=== PATIENT | female | born 1960 | race American Indian/Alaskan Native ===

== ENCOUNTER 2017-08-10 23:14 | Emergency (ER) | payer MEDICARE ==
[2017-08-10 23:38] VITALS: BP 190/101
[2017-08-11 00:05] LABS: Hematocrit 29.8 % (30.3-42.9); Hemoglobin 9.7 gm/dl (10.1-14.3); Mean Corpuscular HGB Conc 32 % (30-34); Mean Corpuscular Hemoglobin 28 pg (28-32); Mean Corpuscular Volume 85 fl (79-97); Platelet Count 216 K/mm3 (140-440); Red Blood Count 3.51 M/mm3 (3.65-5.03); Red Cell Distribution Width 21.8 % (13.2-15.2); White Blood Count 6.7 K/mm3 (4.5-11.0)
[2017-08-11 00:24] LABS: Calcium 9.8 mg/dL (8.4-10.2); Chloride 95.6 mmol/L (98-107); Potassium 4.2 mmol/L (3.6-5.0)
--- NOTE | 2017-08-11 07:13 | XRay Report ---
Chest 2 views: Compared to 07/23/17. History: Shortness of breath. Findings: Marked cardiomegaly. Trachea is midline. Pulmonary venous congestion with lower lobe infiltrates bilaterally, more pronounced compared to previous study. Normal CP angles. Impression: Probable CHF. Less likely bilateral basilar pneumonia.
== END 2017-08-11 04:16 | disposition left against medical advice (07) ==
LOC: ED 23:14
DX: R06.02 Shortness of breath (principal); Z53.21 Procedure and treatment not carried out due to patient leaving prior to being seen by health care provider
CPT/HCPCS: 36415; 71020; 80048; 80061; 84484; 85027; 93005; 93010

== ENCOUNTER 2018-03-27 00:37 | Emergency (ER) | payer MEDICARE ==
--- NOTE | 2018-03-27 02:08 | XRay Report ---
FINAL REPORT EXAM: XR CHEST ROUTINE 2V HISTORY: Shortness of breath TECHNIQUE: PA and lateral views of the chest were submitted. Comparison is made to the previous study of 01/19/2016. FINDINGS: The heart is markedly enlarged. The lungs remain congested. There is thickening of the fissures. There is mild patchy airspace in the lung bases. Pleural effusions is not seen. The skeletal structures do not show any acute changes. IMPRESSION: Cardiomegaly with congestive heart failure pattern. Mild patchy airspace disease in both lung bases.
[2018-03-27 02:19] LABS: Basophils # (Auto) 0.1 K/mm3 (0.0-0.1); Basophils % (Auto) 0.7 % (0.0-1.8); Eosinophils # (Auto) 0.5 K/mm3 (0.0-0.4); Eosinophils % (Auto) 5.5 % (0.0-4.3); Hematocrit 29.2 % (30.3-42.9); Lymphocytes # (Auto) 1.9 K/mm3 (1.2-5.4); Lymphocytes % (Auto) 20.3 % (13.4-35.0); Mean Corpuscular HGB Conc 34 % (30-34); Mean Corpuscular Hemoglobin 29 pg (28-32); Mean Corpuscular Volume 86 fl (79-97); Monocytes # (Auto) 0.8 K/mm3 (0.0-0.8); Monocytes % (Auto) 9.2 % (0.0-7.3); Platelet Count 250 K/mm3 (140-440)
[2018-03-27 02:22] LABS: Red Cell Distribution Width 21.2 % (13.2-15.2)
[2018-03-27 02:49] LABS: Calcium 9.6 mg/dL (8.4-10.2)
[2018-03-27] MEDS ORDERED: NORCO 5/325 PO ONE (04:57)
--- NOTE | 2018-03-27 05:08 | Emergency Department Report ---
HPI - General Chief Complaint: Dyspnea/Respdistress Time Seen by Provider: 03/27/18 03:29 - HPI HPI: 57-year-old [place] female presents to the emergency department with complaint of trouble sleeping because of shortness of breath when she tries to lay flat. Patient has a history of end-stage renal disease on hemodialysis on Wednesday/ Wednesday/Wednesday and she has not missed any appointment. She also has a history of CHF, GERD, hypertension. Patient was driven in by her to be seen. She did not take anything for her symptoms prior to presentation. No recent travel or sick contacts at home. She denies any chest pain, fever, lower extremity swelling, cough. Her marble and granite polisher is Dr. She Holliday and her primary care physician is Dr. Philly Lafleur. ED Past Medical Hx - Past Medical History Previous Medical History?: Yes Hx Hypertension: Yes Hx Heart Attack/AMI: No Hx Congestive Heart Failure: Yes Hx Diabetes: No Hx Deep Vein Thrombosis: No Hx Pulmonary Embolism: No Hx GERD: Yes Hx Liver Disease: No Hx Renal Disease: Yes Hx Seizures: No Hx Asthma: No Hx COPD: No Hx Tuberculosis: No Hx Dementia: No Hx HIV: No - Surgical History Past Surgical History?: Yes Hx Coronary Stent: No Hx Pacemaker: No Hx Internal Defibrillator: No Additional Surgical History: LUE fistula - Social History Smoking Status: Never Smoker Substance Use Type: None - Medications Home Medications: Home Medications Medication Instructions Recorded Confirmed Last Taken Type Carvedilol [Coreg] 25 mg PO BID #60 tablet 08/22/16 07/23/17 1 Day Ago Rx ~07/22/17 NIFEdipine [Nifedipine ER] 60 mg PO BID 07/23/17 07/23/17 1 Day Ago History ~07/22/17 Doxazosin [Cardura] 4 mg PO QDAY #30 tablet 07/24/17 Unknown Rx Sevelamer Carbonate [Renvela] 2,400 mg PO AC 07/24/17 07/24/17 07/24/17 History 2400 Valsartan [Diovan] 160 mg PO BID #60 tablet 07/24/17 Unknown Rx HYDROcodone/APAP 5-325 [[place] 1 each PO Q8H PRN #6 tablet 03/27/18 Unknown Rx 5/325] ED Review of Systems ROS: Stated complaint: TERESE / SOB Other details as noted in HPI Comment: All other systems reviewed and negative Constitutional: denies: chills, fever Eyes: denies: eye pain, eye discharge, vision change ENT: denies: ear pain, throat pain Respiratory: orthopnea. denies: cough Cardiovascular: denies: chest pain, palpitations, edema Gastrointestinal: denies: abdominal pain, nausea, diarrhea Genitourinary: denies: urgency, dysuria, discharge Musculoskeletal: denies: back pain, joint swelling, arthralgia Skin: denies: rash, lesions Neurological: denies: headache, weakness, paresthesias Physical Exam - Physical Exam Vital Signs: Vital Signs 03/27/18 03/27/18 03/27/18 01:35 01:42 02:18 Temperature 98.4 F Pulse Rate 88 Respiratory Rate Blood Pressure 194/103 O2 Sat by Pulse 89 93 91 Oximetry 03/27/18 02:32 Temperature Pulse Rate Respiratory 20 Rate Blood Pressure O2 Sat by Pulse 95 Oximetry Physical Exam: GENERAL: The patient is well-developed well-nourished. HENT: Normocephalic. Atraumatic. Patient has moist mucous membranes. EYES: Extraocular motions are intact. Pupils equal reactive to light bilaterally. NECK: Supple. Trach is midline. CHEST/LUNGS: Coarse breath sounds but the chest. No tachypnea or accessory muscle use. There is no respiratory distress noted. HEART/CARDIOVASCULAR: Regular. There is no tachycardia. There is no murmur. ABDOMEN: Abdomen is soft, nontender. Patient has normal bowel sounds. There is no abdominal distention. SKIN: Skin is warm and dry. NEURO: The patient is awake, alert, and oriented. The patient is cooperative. The patient has no focal neurologic deficits. The patient has normal speech. MUSCULOSKELETAL: There is no tenderness or deformity. There is no limitation range of motion. There is no evidence of acute injury. ED Course Vital Signs 03/27/18 03/27/18 03/27/18 01:35 01:42 02:18 Temperature 98.4 F Pulse Rate 88 Respiratory Rate Blood Pressure 194/103 O2 Sat by Pulse 89 93 91 Oximetry 03/27/18 02:32 Temperature Pulse Rate Respiratory 20 Rate Blood Pressure O2 Sat by Pulse 95 Oximetry ED Medical Decision Making - Lab Data Result diagrams: 03/27/18 01:50 03/27/18 01:50 - EKG Data -: EKG Interpreted by Me EKG shows normal: sinus rhythm, axis, intervals, QRS complexes (LBBB, LVH), ST- T waves Rate: normal - EKG Data When compared to previous EKG there are: no significant change Interpretation: unchanged when compared t (08/10/17) - Radiology Data Radiology results: image reviewed interpreted by me: Chest x-ray shows some pulmonary vascular congestion. No pneumothorax. No obvious pneumonia. - Medical Decision Making Patient presented mostly because she was unable to get some sleep secondary to her orthopnea. Labs show some renal insufficiency with the patient has chronic kidney disease on hemodialysis. No hyperkalemia. Patient had some elevated blood pressure but came down to a more reasonable level without any intervention. Patient started saying that she was feeling improved, was tired, and just wanted to go home and go to sleep and was asking for discharge home. Chest x-ray does show some pulmonary vascular congestion but the patient does not appear to have any respiratory distress. Without any supplemental oxygen she kept her pulse ox in the mid 90s. Patient was discharged home to follow up with her primary care physician, marble and granite polisher, and continue with her normal dialysis regiment. However she understands to return to the emergency department with any worsening of her symptoms or any acute distress. - Differential Diagnosis CHF, pneumonia, asthma Critical Care Time: No Critical care attestation.: If time is entered above; I have spent that time in minutes in the direct care of this critically ill patient, excluding procedure time. ED Disposition Clinical Impression: ESRD (end stage renal disease) on dialysis, Orthopnea Hypertension Qualifiers: Hypertension type: essential hypertension Qualified Code(s): I10 - Essential ( primary) hypertension Disposition: TO HOME OR SELFCARE Is pt being admited?: No Condition: Stable Instructions: Chronic Kidney Disease (ED), Hypertension (ED) Additional Instructions: Please follow-up with your primary care physician and your marble and granite polisher. Make sure to go to your dialysis appointment on Wednesday. Return to the emergency department with any return of your shortness of breath or with any acute distress. You have been prescribed a medication that is sedating and therefore should not be taken prior to driving, working, and responsible for children and in no way should be mixed with alcohol of any quantity. Prescriptions: HYDROcodone/APAP 5-325 [[place] 5/325] 1 each PO Q8H PRN #6 tablet PRN Reason: Pain Referrals: PHILLY LAFLEUR MD [Primary Care Provider] - 2-3 Days JORI BRYAN MD [Staff Physician] - 2-3 Days Time of Disposition: 05:13
[2018-03-27 05:10] VITALS: BP 178/89
== END 2018-03-27 05:28 | disposition home or self-care (01) ==
LOC: ED 00:37
DX: E11.22 Type 2 diabetes mellitus with diabetic chronic kidney disease (principal); I13.2 Hypertensive heart and chronic kidney disease with heart failure and with stage 5 chronic kidney disease, or end stage renal disease; I50.9 Heart failure, unspecified; N18.6 End stage renal disease; K21.9 Gastro-esophageal reflux disease without esophagitis; Z99.2 Dependence on renal dialysis; Z88.6 Allergy status to analgesic agent; Z88.8 Allergy status to other drugs, medicaments and biological substances
CPT/HCPCS: 36415; 71046; 80048; 85025; 93005; 93010

== ENCOUNTER 2018-03-28 01:00 | Inpatient (IN) | payer MEDICARE ==
[2018-03-28] MEDS ORDERED: DUONEB *Not for PRN Use IH ONE (01:22)
--- NOTE | 2018-03-28 02:39 | XRay Report ---
FINAL REPORT EXAM: XR CHEST ROUTINE 2V HISTORY: Shortness of breath TECHNIQUE: PA and lateral views of the chest were submitted and compared to the study of 03/27/2018. FINDINGS: The heart is moderately enlarged. There is patchy airspace disease in both lower lobes with a small right-sided effusion. Mild congestion cannot be excluded. The skeletal structures do not show any acute changes. IMPRESSION: Cardiomegaly with stable airspace disease in both lung bases with small right-sided effusion. Mild congestion cannot be excluded.
[2018-03-28 02:40] LABS: Basophils # (Auto) 0.1 K/mm3 (0.0-0.1); Eosinophils # (Auto) 0.1 K/mm3 (0.0-0.4); Hematocrit 27.3 % (30.3-42.9); Hemoglobin 9.2 gm/dl (10.1-14.3); Lymphocytes # (Auto) 1.2 K/mm3 (1.2-5.4); Lymphocytes % (Auto) 12.6 % (13.4-35.0); Mean Corpuscular HGB Conc 34 % (30-34); Mean Corpuscular Hemoglobin 29 pg (28-32); Mean Corpuscular Volume 86 fl (79-97); Monocytes # (Auto) 0.6 K/mm3 (0.0-0.8); Monocytes % (Auto) 6.4 % (0.0-7.3); Platelet Count 235 K/mm3 (140-440); Red Blood Count 3.17 M/mm3 (3.65-5.03)
[2018-03-28 02:41] LABS: Red Cell Distribution Width 22.1 % (13.2-15.2)
[2018-03-28 03:13] LABS: Calcium 9.8 mg/dL (8.4-10.2)
[2018-03-28] MEDS ORDERED: LASIX IV ONE (05:04)
[2018-03-28] MEDS ORDERED: APRESOLINE IV ONE (05:04)
[2018-03-28] MEDS ORDERED: BABY ASPIRIN PO ONE (05:31)
--- NOTE | 2018-03-28 05:31 | Emergency Department Report ---
HPI - General Chief Complaint: Dyspnea/Respdistress Time Seen by Provider: 03/28/18 05:08 - HPI HPI: The patient is a 57-year-old female with a history of end-stage renal disease, presents for evaluation of dyspnea. The patient reports constant dyspnea for the past one day, severe, exacerbated with exertion or lying flat, improved with sitting up. The patient has fever, trauma to the chest, chest pain, hemoptysis, unilateral leg swelling, recent immobilization. ED Past Medical Hx - Past Medical History Previous Medical History?: Yes Hx Hypertension: Yes Hx Heart Attack/AMI: No Hx Congestive Heart Failure: Yes Hx Diabetes: No Hx Deep Vein Thrombosis: No Hx Pulmonary Embolism: No Hx GERD: Yes Hx Liver Disease: No Hx Renal Disease: Yes (M, W, F Dr. 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 - Surgical History Hx Coronary Stent: No Hx Pacemaker: No Hx Internal Defibrillator: No Additional Surgical History: LUE fistula - Social History Smoking Status: Never Smoker - Medications Home Medications: Home Medications Medication Instructions Recorded Confirmed Last Taken Type Carvedilol [Coreg] 25 mg PO BID #60 tablet 08/22/16 03/28/18 1 Day Ago Rx ~07/22/17 NIFEdipine [Nifedipine ER] 60 mg PO BID 07/23/17 03/28/18 1 Day Ago History ~07/22/17 Doxazosin [Cardura] 4 mg PO QDAY #30 tablet 07/24/17 03/28/18 Unknown Rx Sevelamer Carbonate [Renvela] 2,400 mg PO AC 07/24/17 03/28/18 07/24/17 History 2400 hydrALAZINE [Apresoline TAB] 100 mg PO BID 03/28/18 03/28/18 Unknown History ED Review of Systems ROS: Stated complaint: TERESE Other details as noted in HPI Constitutional: denies: fever ENT: denies: throat or neck pain Respiratory: denies: cough reports shortness of breath Cardiovascular: denies: chest pain Endocrine: denies unexplained weight loss or gain Gastrointestinal: denies: abdominal pain, nausea Genitourinary: denies: dysuria Musculoskeletal: denies: leg swelling Skin: denies: rash Neurological: denies: headache Hematological/Lymphatic: denies: easy bleeding or easy bruising Psych: denies sadness or hopelessness Physical Exam - Physical Exam Vital Signs: Vital Signs 03/28/18 03/28/18 03/28/18 01:15 02:09 02:38 Temperature 98.0 F 98.0 F Pulse Rate 85 85 Respiratory 18 18 Rate Blood Pressure 213/105 213/105 205/106 O2 Sat by Pulse 94 96 Oximetry 03/28/18 03/28/18 03/28/18 02:46 02:59 03:00 Temperature Pulse Rate 88 90 Respiratory 22 28 H Rate Blood Pressure 205/106 205/106 O2 Sat by Pulse 82 L 89 98 Oximetry 03/28/18 03/28/18 03/28/18 03:15 03:30 03:45 Temperature Pulse Rate 85 88 93 H Respiratory 20 21 31 H Rate Blood Pressure 207/105 211/106 205/112 O2 Sat by Pulse 96 95 94 Oximetry 03/28/18 03/28/18 03/28/18 04:00 04:15 04:30 Temperature Pulse Rate 87 84 88 Respiratory 22 19 26 H Rate Blood Pressure 210/107 197/102 192/104 O2 Sat by Pulse 95 96 98 Oximetry Physical Exam: General: well-nourished, well-developed, no acute distress Head: Normocephalic, atraumatic Eyes: normal sclera ENT: Mucous membranes are pink and moist Neck: trachea midline, neck supple, No neck stiffness, no cervical adenopathy Respiratory: Breath sounds equal bilaterally, no wheezing, rales, or rhonchi Cardio: S1 and S2 present, no murmurs, rubs, gallops, capillary refill is brisk Abdomen: Normoactive bowel sounds, soft abdomen, no rigidity, no guarding or rebound tenderness Chest WALL/Back: No tenderness to palpation of the chest wall, no CVA tenderness with percussion Musc: No pitting edema Skin: No rash Neuro: no facial drooping, normal speech Psych: Normal affect ED Course Vital Signs 03/28/18 03/28/18 03/28/18 01:15 02:09 02:38 Temperature 98.0 F 98.0 F Pulse Rate 85 85 Respiratory 18 18 Rate Blood Pressure 213/105 213/105 205/106 O2 Sat by Pulse 94 96 Oximetry 03/28/18 03/28/18 03/28/18 02:46 02:59 03:00 Temperature Pulse Rate 88 90 Respiratory 22 28 H Rate Blood Pressure 205/106 205/106 O2 Sat by Pulse 82 L 89 98 Oximetry 03/28/18 03/28/18 03/28/18 03:15 03:30 03:45 Temperature Pulse Rate 85 88 93 H Respiratory 20 21 31 H Rate Blood Pressure 207/105 211/106 205/112 O2 Sat by Pulse 96 95 94 Oximetry 03/28/18 03/28/18 03/28/18 04:00 04:15 04:30 Temperature Pulse Rate 87 84 88 Respiratory 22 19 26 H Rate Blood Pressure 210/107 197/102 192/104 O2 Sat by Pulse 95 96 98 Oximetry ED Medical Decision Making - Lab Data Result diagrams: 03/28/18 02:22 03/28/18 02:22 - Medical Decision Making The patient was seen and examined by myself. The patient is placed on a immigration consultant and continuous pulse ox. On initial evaluation, the patient was found to be in no distress. Evaluation orders were placed. The patient was given a breathing treatment and placed on supplemental oxygen. The patient was given antihypertensive. Lab results reveal elevated BUN of 42, elevated creatinine of 9, and severely elevated BNP of 70,000, consistent with congestive heart failure. Chest x-ray exhibits cardiomegaly and bibasilar pulmonary congestion, also consistent with fluid overload and congestive heart failure. The patient was given IV Lasix for treatment of his heart failure. Dr. Power, the driller machine on-call for the patient's driller machine was contacted. He agreed to arrange dialysis. Dr. Busch the physician on-call for the hospitalist service was contacted. She agreed to admit the patient. The admit order was placed. The patient was admitted in guarded condition. Critical care attestation.: If time is entered above; I have spent that time in minutes in the direct care of this critically ill patient, excluding procedure time. ED Disposition Clinical Impression: End-stage renal disease needing dialysis, Hypertensive emergency Dyspnea Qualifiers: Dyspnea type: dyspnea on exertion Qualified Code(s): R06.09 - Other forms of dyspnea CHF (congestive heart failure) Qualifiers: Heart failure type: systolic Heart failure chronicity: unspecified Qualified Code(s): I50.20 - Unspecified systolic (congestive) heart failure Disposition: DC-09 OP ADMIT IP TO THIS HOSP Is pt being admited?: Yes Does the pt Need Aspirin: Yes Condition: Serious Instructions: Hypertension (ED) Referrals: PHILLY LAFLEUR MD [Primary Care Provider] - 3-5 Days Time of Disposition: 05:28
[2018-03-28] MEDS ORDERED: NACL 0.9% 100 ML IV PRN (06:15)
[2018-03-28] MEDS ORDERED: ZOFRAN IV PRN (06:41)
[2018-03-28] MEDS ORDERED: SODIUM CHLORIDE FLUSH SYRINGE 10 ML IV PRN (06:41)
--- NOTE | 2018-03-28 06:41 | History and Physical Report ---
History of Present Illness Date of examination: 03/28/18 History of present illness: 57-year-old woman with a history of hypertension, end-stage renal disease, heart failure, GERRD comes emergency room with complaints of shortness of breath that started Wednesday night. She was seen in the Er and also complained of back pain, she was later discharged. She states that the pain medicine she recieved in the ER made nauseous and she had episodes of vomiting. Complained of PND, orthropnea, no chest pain. She had abdominal discomfort earlier in the ER but this is now resolved Review of systems Constitutional: no weight loss, chills Ears, eyes, nose, mouth and throat: no nasal congestion, no nasal discharge, no sinus pressure, no vision change, no red eye. Neck: No neck pain or rigidity. Cardiovascular: no chest pain, palpitations Respiratory: No cough Gastrointestinal: no abdominal pain, hematochezia Genitourinary : no dysuria, frequency , no hematuria Musculoskeletal: no joint swelling or muscle ache Integumentary: no rash, no pruritis Neurological: no parathesias, no numbness, no focal weakness Endocrine: no cold or heat intolerance, no polyuria or polydipsia Hematologic/Lymphatic: no easy bruising, no easy bleeding, no gland swelling Allergic/Immunologic: no urticaria, no angioedema. PAST MEDICAL HISTORY: hypertension, end-stage renal disease, heart failure, GERRD PAST SURGICAL HISTORY: AV fistula SOCIAL HISTORY: Denies alcohol, tobacco, drugs FAMILY HISTORY: Hypertension Medications and Allergies Allergies Allergy/AdvReac Type Severity Reaction Status Date / Time acetaminophen [From [place]] AdvReac Vomiting Verified 03/28/18 02:05 clonidine AdvReac Unknown Verified 07/23/17 08:06 hydrocodone [From [place]] AdvReac Vomiting Verified 03/28/18 02:05 lisinopril AdvReac Unknown Verified 07/23/17 08:06 Home Medications Medication Instructions Recorded Confirmed Last Taken Type NIFEdipine [Nifedipine ER] 60 mg PO BID 07/23/17 03/28/18 1 Day Ago History ~07/22/17 Sevelamer Carbonate [Renvela] 2,400 mg PO AC 07/24/17 03/28/18 07/24/17 History 2400 Aspirin [Aspirin BABY CHEW TAB] 81 mg PO QDAY #30 tab.chew 06/12/18 Unknown Rx Carvedilol [Coreg] 25 mg PO BID #60 tablet 03/29/18 Unknown Rx Doxazosin [Cardura] 4 mg PO QDAY #30 tablet 03/29/18 Unknown Rx Losartan [Cozaar] 100 mg PO QDAY #30 tablet 03/29/18 Unknown Rx Pravastatin Sodium [Pravastatin] 20 mg PO QHS #30 tablet 03/29/18 Unknown Rx hydrALAZINE [Apresoline TAB] 100 mg PO TID #30 tab 03/29/18 Unknown Rx Active Meds: Active Medications Sodium Chloride (Nacl 0.9%) 100 mls @ 999 mls/hr IV JIM PRN PRN Reason: Hypotension Exam - Physical Exam Narrative exam: Gen. appearance: Patient lying in bed, no apparent distress HEENT: Normocephalic, atraumatic, pupils equally round and reactive to light, extraocular movement intact, and no sclericterus,. No JVD or thyromegaly or nodule,neck supple, no carotid bruit ,mucous membranes moist, no exudate or erythema Heart: S1, S2, regular rate and rhythm Lungs: Crackles bilaterally, breathing comfortable Abdomen: Positive bowel sounds, nontender, nondistended, no organomegaly Extremity: No edema, cyanosis, clubbing Skin: No rash, nodules, warm, dry Neuro: Oriented 3, cranial nerves II-12 intact, speech is fluent, motor and sensory intact - Constitutional Vitals: Temp Pulse Resp BP Pulse Ox 98.0 F 88 28 H 196/104 89 03/28/18 02:09 03/28/18 06:00 03/28/18 06:00 03/28/18 06:00 03/28/18 06:00 Results - Labs CBC & Chem 7: 03/29/18 07:45 03/29/18 07:45 Labs: Abnormal lab results 03/28/18 03/28/18 03/28/18 Range/Units 02:22 02:22 02:25 RBC 3.17 L (3.65-5.03) M/mm3 Hgb 9.2 L (10.1-14.3) gm/dl Hct 27.3 L (30.3-42.9) % RDW 22.1 H (13.2-15.2) % Lymph % (Auto) 12.6 L (13.4-35.0) % Seg Neutrophils % 79.0 H (40.0-70.0) % Chloride 95.8 L (98-107) mmol/L BUN 42 H (7-17) mg/dL Creatinine 9.7 H (0.7-1.2) mg/dL Glucose 112 H (65-100) mg/dL NT-Pro-B Natriuret Pep 31198 H (0-900) pg/mL - Imaging and Cardiology EKG: image reviewed Chest x-ray: image reviewed Assessment and Plan Assessment Pulmonary Edema ESRD needing dialysis Hypertension uncontrolled GERD Plan Admit to medicine Consult renal for dialysis Check cardiac enzymes, DVT prophalaxis IV hydralazine for blood pressure control
[2018-03-28] MEDS ORDERED: SEVELAMER CARBONATE 2400 MG PO SCH (07:30)
[2018-03-28] MEDS ORDERED: COREG PO SCH (08:00)
--- NOTE | 2018-03-28 10:29 | Consultation ---
History of Present Illness - Reason for Consult Consult date: 03/28/18 end stage renal disease, accelerated hypertension Requesting physician: EDUARDO ROBISON - History of Present Illness 57-year-old lady who is well-known to me with a history of hypertension, End stage renal disease on hemodialysis on a Wednesday, Wednesday and Wednesday schedule. Patient dialyzes at [facility] dialysis clinic on [facility]. She went for her usual dialysis on Wednesday and everything went well. She states when she was leaving she was down to her dry weight and her blood pressure was 140/80 mmHg. She started having problems on Wednesday night. She felt short of breath and is with worsening exertional lying flat. She went to the emergency room and was given hydrocodone for back pain. She was not coughing but she did complain of tightness in her chest which was constant on Wednesday but has resolved now. She admits to associated palpitations but no dizziness or nausea and sweating. Patient was seen in emergency room on Wednesday discharged home and then presented back yesterday. Blood pressure by this time was quite high and she is being admitted for further management. She recently had reevaluation for her kidney transplant less than a year ago and tests including heart evaluation were normal per Patient. She is active on the transplant list. Past History Past Medical History: hypertension, hyperlipidemia Medications and Allergies Allergies Allergy/AdvReac Type Severity Reaction Status Date / Time acetaminophen [From [place]] AdvReac Vomiting Verified 03/28/18 02:05 clonidine AdvReac Unknown Verified 07/23/17 08:06 hydrocodone [From [place]] AdvReac Vomiting Verified 03/28/18 02:05 lisinopril AdvReac Unknown Verified 07/23/17 08:06 Home Medications Medication Instructions Recorded Confirmed Last Taken Type Carvedilol [Coreg] 25 mg PO BID #60 tablet 08/22/16 03/28/18 1 Day Ago Rx ~07/22/17 NIFEdipine [Nifedipine ER] 60 mg PO BID 07/23/17 03/28/18 1 Day Ago History ~07/22/17 Doxazosin [Cardura] 4 mg PO QDAY #30 tablet 07/24/17 03/28/18 Unknown Rx Sevelamer Carbonate [Renvela] 2,400 mg PO AC 07/24/17 03/28/18 07/24/17 History 2400 hydrALAZINE [Apresoline TAB] 100 mg PO BID 03/28/18 03/28/18 Unknown History Active Meds: Active Medications Carvedilol (Coreg) 25 mg PO BID NAHUN Doxazosin Mesylate (Cardura) 4 mg PO QDAY NAHUN Enoxaparin Sodium (Lovenox) 30 mg SUB-Q QDAY NAHUN Hydralazine HCl (Apresoline) 5 mg IV Q6HR PRN PRN Reason: Hypertension Hydralazine HCl (Apresoline) 100 mg PO BID [facility] Sodium Chloride (Nacl 0.9%) 100 mls @ 999 mls/hr IV JIM PRN PRN Reason: Hypotension Morphine Sulfate (Morphine) 2 mg IV Q4H PRN PRN Reason: Pain, Moderate (4-6) Nifedipine (Procardia Xl) 60 mg PO BID NAHUN Ondansetron HCl (Zofran) 4 mg IV Q8H PRN PRN Reason: Nausea And Vomiting Sevelamer Carbonate (Renvela) 2,400 mg PO AC NAHUN Sodium Chloride (Sodium Chloride Flush Syringe 10 Ml) 10 ml IV BID NAHUN Sodium Chloride (Sodium Chloride Flush Syringe 10 Ml) 10 ml IV PRN PRN PRN Reason: LINE FLUSH Review of Systems All systems: negative (Constitutional: no fever or chills. No anorexia or weight loss. HEENT: No sore throat or sinus drainage no hearing or vision impairment . Cardiovascular: See history of present illness Respiratory: See history of present illness Gastrointestinal: She had nausea or vomiting after taking hydrocodone. She also had constipation for which she took a laxative. No diarrhea no hematemesis, melena or hematochezia. Genitourinary: No frequency urgency dysuria or hematuria. She makes very little urine. Hematologic: No abnormal bleeding or bruising. Integumentary: no pruritus or rash. Neurological: No headache no focal weakness or numbness, no syncope or seizures. Musculoskeletal: No joint pains no stiffness. Psychiatry: no anxiety or depression) Exam - Vital Signs Vital signs: Vital Signs Temp Pulse Resp BP Pulse Ox 98.0 F 85 18 213/105 94 03/28/18 01:15 03/28/18 01:15 03/28/18 01:15 03/28/18 01:15 03/28/18 01:15 - Physical Exam Narrative exam: Young -[place] female lying in bed in no acute distress HEENT: NCAT, pink oral mucous membrane Neck: Supple, no venous distention CVS: S1S2 RRR with no murmur, rub or gallop Chest: Few rales lower zones bilaterally, Abdomen: Protuberant, soft, nontender, no organomegaly, bowel sounds are present Extremities: No edema, no clubbing Skin warm and dry, no rash Neuro: Awake, alert no focal deficits Results - Lab Results 03/28/18 02:22 03/28/18 02:22 Most recent lab results Calcium 9.8 mg/dL (8.4-10.2) 03/28/18 02:22 Assessment and Plan - Patient Problems (1) End-stage renal disease needing dialysis Current Visit: Yes Status: Acute Plan to address problem: Dialysis today is ongoing. Attempt 3-4 L fluid removal and reevaluate in the morning. (2) Hypertensive emergency Current Visit: Yes Status: Acute Plan to address problem: Blood pressure has improved. Follow blood pressure after fluid removal on dialysis. Adjust medications if still high. (3) Acute on chronic diastolic (congestive) heart failure Current Visit: No Status: Acute Plan to address problem: Follow-up following fluid removal on dialysis. Continue kallie and diuretic. (4) Anemia in ESRD (end-stage renal disease) Current Visit: No Status: Chronic Plan to address problem: Erythropoetin on dialysis.
--- NOTE | 2018-03-28 10:49 | Event Note ---
Date: 03/28/18 Patient with ESRD on dialysis presents with shortness of breath. I have seen and examined her. She states, that she did not miss dialysis. Urgent dialysis today.
[2018-03-28] MEDS: APRESOLINE IV PRN (12:30)
[2018-03-28] MEDS ORDERED: NACL 0.9 (PRIMING MACHINE ONLY DIALYSIS) MC ONE (12:46)
[2018-03-28] MEDS: LOVENOX SUB-Q SCH (14:39)
[2018-03-28] MEDS: CARDURA PO SCH (14:46)
[2018-03-28] MEDS: COREG PO SCH ×2 (14:46→21:01)
[2018-03-28] MEDS: RENVELA PO SCH ×3 (14:47→18:07)
[2018-03-28] MEDS: APRESOLINE PO SCH ×2 (14:47→21:01)
[2018-03-28] MEDS: PROCARDIA XL PO SCH ×2 (14:47→21:01)
[2018-03-28] MEDS: SODIUM CHLORIDE FLUSH SYRINGE 10 ML IV SCH ×2 (14:48→21:02)
[2018-03-28] MEDS: MORPHINE IV PRN ×2 (15:16→21:31)
[2018-03-29] MEDS: APRESOLINE IV PRN (05:49)
[2018-03-29] MEDS: RENVELA PO SCH ×2 (08:08→12:00)
--- NOTE | 2018-03-29 08:37 | Progress Note ---
Assessment and Plan - Patient Problems (1) End-stage renal disease needing dialysis Current Visit: Yes Status: Acute Plan to address problem: Patient tolerated dialysis with no complications. OK to discharge from my standpoint (2) Hypertensive emergency Current Visit: Yes Status: Acute Plan to address problem: Hypertensive emergency was secondary to patient running out of her medication. Blood pressure has improved after dialysis. Resume Olmesartan (3) Acute on chronic diastolic (congestive) heart failure Current Visit: No Status: Acute Plan to address problem: Secondary to severe hypertension. Improved. Continue kallie and diuretic. (4) Anemia in ESRD (end-stage renal disease) Current Visit: No Status: Chronic Plan to address problem: Erythropoetin on dialysis. Subjective Date of service: 03/29/18 Principal diagnosis: end-stage renal disease, hypertensive emergency, acute pulmonary edema Interval history: Patient seen lying in bed. She feels much better today. No chest pain or shortness of breath. On further inquiry, admits she ran out of 2 of her blood pressure medications the doxazosin and Olmesartan Objective - Exam Narrative Exam: Young -[place] female lying in bed in no acute distress HEENT: NCAT, pink oral mucous membrane Neck: Supple, no venous distention CVS: S1S2 RRR with no murmur, rub or gallop Chest: Clear, Abdomen: Protuberant, soft, nontender, no organomegaly, bowel sounds are present Extremities: No edema, no clubbing Skin warm and dry, no rash Neuro: Awake, alert no focal deficits - Vital Signs Vital signs: Vital Signs - 12hr 03/28/18 03/28/18 03/29/18 21:01 21:08 00:25 Pulse Rate 98 H 95 H Respiratory 18 Rate Blood Pressure 187/96 160/80 O2 Sat by Pulse 97 92 Oximetry 03/29/18 05:49 Pulse Rate 80 Respiratory Rate Blood Pressure 166/82 O2 Sat by Pulse Oximetry - Lab 03/28/18 02:22 03/28/18 02:22 Most recent lab results Calcium 9.8 mg/dL (8.4-10.2) 03/28/18 02:22
[2018-03-29 08:39] LABS: Basophils % (Auto) 0.6 % (0.0-1.8); Eosinophils # (Auto) 0.5 K/mm3 (0.0-0.4); Eosinophils % (Auto) 6.1 % (0.0-4.3); Hematocrit 31.4 % (30.3-42.9); Hemoglobin 10.3 gm/dl (10.1-14.3); Lymphocytes # (Auto) 2.2 K/mm3 (1.2-5.4); Lymphocytes % (Auto) 26.2 % (13.4-35.0); Mean Corpuscular HGB Conc 33 % (30-34); Mean Corpuscular Hemoglobin 29 pg (28-32); Mean Corpuscular Volume 88 fl (79-97); Monocytes # (Auto) 0.8 K/mm3 (0.0-0.8); Platelet Count 253 K/mm3 (140-440); Red Blood Count 3.57 M/mm3 (3.65-5.03)
[2018-03-29 08:48] LABS: Red Cell Distribution Width 21.8 % (13.2-15.2)
[2018-03-29 08:59] LABS: Calcium 9.6 mg/dL (8.4-10.2)
[2018-03-29] MEDS ORDERED: COZAAR PO SCH (10:00)
[2018-03-29] MEDS: COREG PO SCH (10:40)
[2018-03-29] MEDS: SODIUM CHLORIDE FLUSH SYRINGE 10 ML IV SCH (10:40)
[2018-03-29] MEDS: PROCARDIA XL PO SCH (10:40)
[2018-03-29] MEDS: CARDURA PO SCH (10:40)
[2018-03-29] MEDS: LOVENOX SUB-Q SCH (10:40)
[2018-03-29] MEDS: APRESOLINE PO SCH (10:40)
[2018-03-29 12:53] VITALS: BP 167/81
--- NOTE | 2018-03-29 14:39 | Discharge Summary ---
Providers - Providers Date of Admission: 03/28/18 06:41 Date of discharge: 03/29/18 Attending physician: SHANIQUA SIMMONS 03/28/18 05:29 Consult to Physician [CONS] Stat Comment: Consulting Provider: JORI BRYAN Physician Instructions: Reason For Exam: arrangment of dialysis Primary care physician: PHILLY LAFLEUR Hospitalization Condition: Serious Hospital course: 57-year-old lady with a history of hypertension, End stage renal disease on hemodialysis on a Wednesday, Wednesday and Wednesday schedule presented to Hospital due to short of breath and with worsening symptom on lying flat. Blood pressure on admission was quite high(213/105) and she was being admitted for further management. She recently had reevaluation for her kidney transplant less than a year ago and tests including heart evaluation were normal per Patient. She is active on the transplant list. Nephrology was consulted for emergent dialysis. Her home medications were resumed and adjusted accordingly to better control her blood pressure. Patient's symptoms stabilized and improved clinically following dialysis. Her blood pressure also improved. Nephrology cleared the patient for discharge. Patient was recommended to have a 2-D echocardiogram but she stated that she had a echocardiogram 2 months ago at [facility] and she was told the findings were normal. 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 She was discharged home in stable condition. Discharge diagnosis: /End-stage renal disease needing dialysis Patient tolerated dialysis with no complications. / Hypertensive emergency Hypertensive emergency was secondary to patient running out of her medication. Blood pressure has improved after dialysis. Resumed Olmesartan, cardura and other home meds / Acute on chronic diastolic (congestive) heart failure Secondary to severe hypertension. Improved with BP control and HD. Stated had 2d echo 2months before at [facility] and EF was normal / Anemia in ESRD (end-stage renal disease) Erythropoitin on dialysis. Disposition: DC- TO HOME OR SELFCARE Time spent for discharge: 32 minutes Core Measure Documentation - Palliative Care Palliative Care/ Comfort Measures: Not Applicable - Core Measures Any of the following diagnoses?: history only Exam - Constitutional Vitals: Temp Pulse Resp BP Pulse Ox 98.6 F 85 14 167/81 90 03/29/18 12:52 03/29/18 12:52 03/29/18 12:52 03/29/18 12:52 03/29/18 12:52 General appearance: Present: no acute distress, well-nourished - EENT Eyes: Present: PERRL ENT: hearing intact, clear oral mucosa - Neck Neck: Present: supple, normal ROM - Respiratory Respiratory effort: normal Respiratory: bilateral: CTA - Cardiovascular Heart Sounds: Present: S1 & S2. Absent: rub, click - Extremities Extremities: pulses symmetrical, No edema Peripheral Pulses: within normal limits - Abdominal General gastrointestinal: Present: soft, non-tender, non-distended, normal bowel sounds - Integumentary Integumentary: Present: clear, warm, dry - Musculoskeletal Musculoskeletal: gait normal, strength equal bilaterally - Psychiatric Psychiatric: appropriate mood/affect, intact judgment & insight - Neurologic Neurologic: CNII-XII intact, moves all extremities Plan Activity: advance as tolerated Weight Bearing Status: Weight Bear as Tolerated Diet: renal Follow up with: PHILLY LAFLEUR MD [Primary Care Provider] - 3-5 Days Forms: Discharge Signature Page Prescriptions: Pravastatin Sodium [Pravastatin] 20 mg PO QHS #30 tablet Aspirin [Aspirin BABY CHEW TAB] 81 mg PO QDAY #30 tab.chew Carvedilol [Coreg] 25 mg PO BID #60 tablet Doxazosin [Cardura] 4 mg PO QDAY #30 tablet hydrALAZINE [Apresoline TAB] 100 mg PO TID #30 tab Losartan [Cozaar] 100 mg PO QDAY #30 tablet
[2018-03-29] MEDS ORDERED: APRESOLINE PO SCH (20:00)
== END 2018-03-29 17:02 | disposition home or self-care (01) | DRG 291 ==
LOC: ED 01:00 → 4A 06:41
PROVIDERS: ADMIT Internal Medicine; ATTEND Internal Medicine
PROC: 5A1D70Z Performance of Urinary Filtration, Intermittent, Less than 6 Hours Per Day (ICD-10-PCS; principal; 2018-03-28)
DX: I13.2 Hypertensive heart and chronic kidney disease with heart failure and with stage 5 chronic kidney disease, or end stage renal disease (principal); I50.33 Acute on chronic diastolic (congestive) heart failure; N18.6 End stage renal disease; J81.0 Acute pulmonary edema; I16.1 Hypertensive emergency; K21.9 Gastro-esophageal reflux disease without esophagitis; D63.1 Anemia in chronic kidney disease; Z79.899 Other long term (current) drug therapy; Z82.49 Family history of ischemic heart disease and other diseases of the circulatory system; Z99.2 Dependence on renal dialysis
CPT/HCPCS: 36415; 71046; 80048; 82550; 82553; 83880; 84484; 85025; 93005; 93010; 94760; 96374; 96375; J0360; J1650; J1940; J2270; J2405; J7030

== ENCOUNTER 2018-12-22 11:39 | Outpatient (CLI) | payer MEDICARE ==
--- NOTE | 2018-12-22 13:55 | Ultrasound Report ---
ULTRASOUND ABDOMEN COMPLETE: TECHNIQUE: Transabdominal ultrasound with color Doppler interrogation. HISTORY: Abdominal distention. COMPARISON: none. FINDINGS: LIVER: The liver observed mildly enlarged with dilated hepatic veins. This probably represents congestive hepatomegaly. There are scattered simple liver cysts but no liver mass or surface nodularity. BILIARY SYSTEM: There is trace sludge in the gallbladder. No large shadowing gallstones. The gallbladder is not distended. There is moderate diffuse gallbladder wall thickening which is probably secondary to ascites. The CBD measures 6 mm. PANCREAS: Normal. SPLEEN: Within normal limits. 9 cm in length. KIDNEYS: Both kidneys are atrophic, echogenic and contain numerous small cysts consistent with chronic renal parenchymal disease. No obvious renal mass or hydronephrosis. AORTA/IVC: Normal. ASCITES: Small ascites is present. IMPRESSION: Congestive hepatomegaly. Multiple simple liver cysts. Trace sludge in the gallbladder. Nonspecific gallbladder wall thickening. Small ascites. Chronic renal parenchymal disease with multiple renal cysts.
== END 2018-12-22 11:40 | disposition home or self-care (01) ==
LOC: US 11:39
PROVIDERS: ATTEND Internal Medicine Nephrology
DX: N28.1 Cyst of kidney, acquired (principal); K76.89 Other specified diseases of liver; R18.8 Other ascites; I50.9 Heart failure, unspecified; I13.2 Hypertensive heart and chronic kidney disease with heart failure and with stage 5 chronic kidney disease, or end stage renal disease; N18.6 End stage renal disease; J44.9 Chronic obstructive pulmonary disease, unspecified; F17.200 Nicotine dependence, unspecified, uncomplicated
CPT/HCPCS: 76700

== ENCOUNTER 2019-03-18 21:31 | Inpatient (IN) | payer MEDICARE ==
[2019-03-18] MEDS ORDERED: APRESOLINE IV ONE (21:52)
[2019-03-18] MEDS ORDERED: ATIVAN IV ONE (21:52)
--- NOTE | 2019-03-18 21:56 | Emergency Department Report ---
ED Shortness of Breath HPI - General Chief Complaint: Dyspnea/Respdistress Stated Complaint: SOB, CAN BREATHE Time Seen by Provider: 03/18/19 21:48 Source: patient Mode of arrival: Ambulatory Limitations: No Limitations - History of Present Illness Initial Comments: Patient is 58 years old female with history of end-stage renal disease on hemodialysis. Last dialysis yesterday. Patient stated that she is compliant with her dialysis. Patient presented to the ER complaining of shortness of breath since last night. Patient denied any chest pain, nausea, vomiting, abdominal pain, fever or chills. Patient found to have an oxygen saturation of 86% on room air improved to 96% on 2 L. Blood pressure of 210/101. MD Complaint: shortness of breath -: Last night Severity: moderate Improves With: oxygen - Related Data Home Medications Medication Instructions Recorded Confirmed Last Taken NIFEdipine [Nifedipine ER] 60 mg PO BID 07/23/17 03/18/19 1 Day Ago ~07/22/17 Sevelamer Carbonate [Renvela] 2,400 mg PO AC 07/24/17 03/18/19 07/24/17 2400 Previous Rx's Medication Instructions Recorded Last Taken Type Carvedilol [Coreg] 25 mg PO BID #60 tablet 03/29/18 Unknown Rx Doxazosin [Cardura] 4 mg PO QDAY #30 tablet 03/29/18 Unknown Rx hydrALAZINE [Apresoline TAB] 100 mg PO TID #30 tab 03/29/18 Unknown Rx Allergies Allergy/AdvReac Type Severity Reaction Status Date / Time acetaminophen [From [place]] AdvReac Vomiting Verified 03/18/19 21:35 clonidine AdvReac Unknown Verified 03/18/19 21:35 hydrocodone [From [place]] AdvReac Vomiting Verified 03/18/19 21:35 lisinopril AdvReac Unknown Verified 03/18/19 21:35 ED Review of Systems ROS: Stated complaint: SOB, CAN BREATHE Other details as noted in HPI Comment: All other systems reviewed and negative Constitutional: denies: chills, fever Respiratory: orthopnea, shortness of breath, SOB with exertion, SOB at rest. denies: cough, wheezing Cardiovascular: denies: chest pain, palpitations Gastrointestinal: denies: abdominal pain, nausea, vomiting, diarrhea, constipation, hematemesis, melena, hematochezia Musculoskeletal: denies: back pain Neurological: denies: headache, weakness, numbness, paresthesias, confusion, abnormal gait ED Past Medical Hx - Past Medical History Previous Medical History?: Yes Hx Hypertension: Yes Hx Heart Attack/AMI: No Hx Congestive Heart Failure: Yes Hx Diabetes: No Hx Deep Vein Thrombosis: No Hx Pulmonary Embolism: No Hx GERD: Yes Hx Liver Disease: No Hx Renal Disease: Yes (M, W, F Dr. 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 Champagne [employer], AV Fistula left arm - Surgical History Past Surgical History?: Yes Hx Coronary Stent: No Hx Pacemaker: No Hx Internal Defibrillator: No Additional Surgical History: LUE fistula - Social History Smoking Status: Current Every Day Smoker - Medications Home Medications: Home Medications Medication Instructions Recorded Confirmed Last Taken Type NIFEdipine [Nifedipine ER] 60 mg PO BID 07/23/17 03/18/19 1 Day Ago History ~07/22/17 Sevelamer Carbonate [Renvela] 2,400 mg PO AC 07/24/17 03/18/19 07/24/17 History 2400 Carvedilol [Coreg] 25 mg PO BID #60 tablet 03/29/18 03/18/19 Unknown Rx Doxazosin [Cardura] 4 mg PO QDAY #30 tablet 03/29/18 03/18/19 Unknown Rx hydrALAZINE [Apresoline TAB] 100 mg PO TID #30 tab 03/29/18 03/18/19 Unknown Rx ED Physical Exam - General Limitations: No Limitations General appearance: alert, in distress - Head Head exam: Present: atraumatic, normocephalic, normal inspection - Eye Eye exam: Present: normal appearance, PERRL - ENT ENT exam: Present: normal exam, normal orophraynx, mucous membranes moist - Neck Neck exam: Present: normal inspection, full ROM. Absent: tenderness, meningismus, lymphadenopathy, thyromegaly - Respiratory Respiratory exam: Present: normal lung sounds bilaterally - Cardiovascular Cardiovascular Exam: Present: regular rate, normal rhythm, normal heart sounds - GI/Abdominal GI/Abdominal exam: Present: soft, normal bowel sounds. Absent: distended, tenderness, guarding, rebound, rigid, organomegaly, mass, bruit, pulsatile mass, hernia - Extremities Exam Extremities exam: Present: normal inspection, full ROM, normal capillary refill. Absent: pedal edema, calf tenderness - Back Exam Back exam: Present: normal inspection, full ROM. Absent: CVA tenderness (R), CVA tenderness (L), muscle spasm, paraspinal tenderness, vertebral tenderness - Neurological Exam Neurological exam: Present: alert, oriented X3, CN II-XII intact - Psychiatric Psychiatric exam: Present: anxious - Skin Skin exam: Present: warm, intact, normal color ED Course Vital Signs 03/18/19 03/18/19 03/18/19 21:37 21:47 22:00 Temperature 98.9 F Pulse Rate 101 H 101 H Respiratory 18 22 22 Rate Blood Pressure 194/108 Blood Pressure 201/107 [Right] O2 Sat by Pulse 94 91 91 Oximetry 03/18/19 03/18/19 22:06 22:30 Temperature Pulse Rate 96 H 92 H Respiratory 24 Rate Blood Pressure 187/109 Blood Pressure 184/102 [Right] O2 Sat by Pulse 97 Oximetry ED Medical Decision Making - Lab Data Result diagrams: 03/18/19 22:15 03/18/19 22:15 - EKG Data -: EKG Interpreted by Ia EKG shows normal: sinus rhythm Rate: normal - EKG Data Interpretation: no acute changes - Radiology Data Radiology results: report reviewed Chest x-ray showed mild CHF. - Medical Decision Making Patient is 58 years old female with history of end-stage renal disease on hemodialysis. Last dialysis yesterday. Patient stated that she is compliant with her dialysis. Patient presented to the ER complaining of shortness of breath since last night. Patient denied any chest pain, nausea, vomiting, abdominal pain, fever or chills. Patient found to have an oxygen saturation of 86% on room air improved to 96% on 2 L. Blood pressure of 210/101. Patient received hydralazine 20 mg which he held the blood pressure but not too much. Labs reviewed and is unremarkable including potassium of 4.5. I discussed the patient was Dr. Power, neurologist was advised to add labetalol 20 mg IV and admitted to the hospital and they will follow up with the patient for possible dialysis tomorrow. I discussed the patient is Dr. Norma Busch, she agreed to admit the patient to medical service. Critical Care Time: Yes Critical care time in (mins) excluding proc time.: 30 Critical care attestation.: If time is entered above; I have spent that time in minutes in the direct care of this critically ill patient, excluding procedure time. ED Disposition Clinical Impression: End-stage renal disease needing dialysis, Hypertensive urgency, Elevated troponin, Shortness of breath Disposition: OP ADMIT IP TO THIS HOSP Is pt being admited?: Yes Condition: Stable
--- NOTE | 2019-03-18 22:44 | XRay Report ---
PROCEDURE: XR CHEST 1V AP TECHNIQUE: Chest radiograph single view. HISTORY: Dyspnea COMPARISONS: Prior chest x-ray 03/28/2018 . FINDINGS: Heart: Diffusely enlarged. Pulmonary vasculature mildly distended and slightly ill-defined. Lungs/Pleural space: Minimal patchy densities present in the lung bases suggesting a small amount of atelectasis. No dense consolidations or effusions are seen.. Interstitial markings mildly coarsened suggesting mild pulmonary edema. Bony thorax: No acute osseous abnormality. Life support devices: None. IMPRESSION: Cardiomegaly with signs of mild CHF. No effusions are seen. Small amount of basilar atel ectasis also visualized.. This document is electronically signed by Wander Perez MD., March 18 2019 11:42:42 PM ET
[2019-03-18 22:46] LABS: Basophils # (Auto) 0.1 K/mm3 (0.0-0.1); Basophils % (Auto) 0.8 % (0.0-1.8); Eosinophils # (Auto) 0.1 K/mm3 (0.0-0.4); Eosinophils % (Auto) 0.7 % (0.0-4.3); Hematocrit 32.8 % (30.3-42.9); Hemoglobin 10.9 gm/dl (10.1-14.3); Lymphocytes # (Auto) 1.3 K/mm3 (1.2-5.4); Lymphocytes % (Auto) 12.1 % (13.4-35.0); Mean Corpuscular HGB Conc 33 % (30-34); Mean Corpuscular Volume 88 fl (79-97); Monocytes # (Auto) 1.2 K/mm3 (0.0-0.8); Platelet Count 242 K/mm3 (140-440); Red Blood Count 3.71 M/mm3 (3.65-5.03)
[2019-03-18 23:03] LABS: Albumin 4.3 g/dL (3.9-5); Calcium 10.6 mg/dL (8.4-10.2)
[2019-03-18] MEDS ORDERED: NORMODYNE IV ONE (23:27)
[2019-03-18] MEDS ORDERED: ZOFRAN IV PRN (23:56)
[2019-03-18] MEDS ORDERED: SODIUM CHLORIDE FLUSH SYRINGE 10 ML IV PRN (23:56)
--- NOTE | 2019-03-18 23:56 | History and Physical Report ---
History of Present Illness Date of examination: 03/18/19 History of present illness: 58-year-old woman with a history of hypertension, end-stage renal disease, heart failure, GERD comes emergency room with complaints of shortness of breath that started last night. Also complaining of nausea vomiting, diarrhea started last night after eating a chili dog. She took some Imodium, diarrhea with vomiting is now resolved. Denies recent travel. Last dialysis was yesterday Review of systems Constitutional: no weight loss, chills, fever Ears, eyes, nose, mouth and throat: no nasal congestion, no nasal discharge, no sinus pressure, no vision change, no red eye. Neck: No neck pain or rigidity. Cardiovascular: no palpitations, chest pain Respiratory: no cough Gastrointestinal: no hematochezia, abdominal pain Genitourinary : no frequency , no hematuria Musculoskeletal: no joint swelling or muscle ache Integumentary: no rash, no pruritis Neurological: no parathesias, no focal weakness Endocrine: no cold or heat intolerance, no polyuria or polydipsia Hematologic/Lymphatic: no easy bruising, no easy bleeding, no gland swelling Allergic/Immunologic: no urticaria, no angioedema. PAST MEDICAL HISTORY: hypertension, end-stage renal disease, heart failure, GERD PAST SURGICAL HISTORY: AV fistula SOCIAL HISTORY: Denies alcohol, tobacco, drugs FAMILY HISTORY: Hypertension Medications and Allergies Allergies Allergy/AdvReac Type Severity Reaction Status Date / Time acetaminophen [From [place]] AdvReac Vomiting Verified 03/18/19 21:35 clonidine AdvReac Unknown Verified 03/18/19 21:35 hydrocodone [From [place]] AdvReac Vomiting Verified 03/18/19 21:35 lisinopril AdvReac Unknown Verified 03/18/19 21:35 Home Medications Medication Instructions Recorded Confirmed Last Taken Type NIFEdipine [Nifedipine ER] 60 mg PO BID 07/23/17 03/18/19 1 Day Ago History ~07/22/17 Sevelamer Carbonate [Renvela] 2,400 mg PO AC 07/24/17 03/18/19 07/24/17 History 2400 Carvedilol [Coreg] 25 mg PO BID #60 tablet 03/29/18 03/18/19 Unknown Rx Doxazosin [Cardura] 4 mg PO QDAY #30 tablet 03/29/18 03/18/19 Unknown Rx hydrALAZINE [Apresoline TAB] 100 mg PO TID #30 tab 03/29/18 03/18/19 Unknown Rx Exam - Physical Exam Narrative exam: Gen. appearance: Patient lying in bed, no apparent distress HEENT: Normocephalic, atraumatic, pupils equally round and reactive to light, extraocular movement intact, and no sclericterus,. No JVD or thyromegaly or nodule,neck supple, no carotid bruit ,mucous membranes moist, no exudate or erythema Heart: S1, S2, regular rate and rhythm Lungs: Crackles bilaterally, breathing comfortable Abdomen: Positive bowel sounds, nontender, nondistended, no organomegaly Extremity: No edema, cyanosis, clubbing Skin: No rash, nodules, warm, dry Neuro: Oriented 3, cranial nerves II-12 intact, speech is fluent, motor and sensory intact - Constitutional Vitals: Temp Pulse Resp BP Pulse Ox 98.9 F 92 H 21 173/96 98 03/18/19 21:37 03/18/19 23:45 03/18/19 23:45 03/18/19 23:45 03/18/19 23:30 Results - Labs CBC & Chem 7: 03/19/19 05:11 03/18/19 22:15 Labs: Abnormal lab results 03/18/19 03/18/19 Range/Units 22:15 22:15 RDW 22.0 H (13.2-15.2) % Lymph % (Auto) 12.1 L (13.4-35.0) % [place] % (Auto) 11.0 H (0.0-7.3) % [place] # 1.2 H (0.0-0.8) K/mm3 Seg Neutrophils % 75.4 H (40.0-70.0) % Seg Neutrophils # 8.2 H (1.8-7.7) K/mm3 Chloride 96.4 L (98-107) mmol/L BUN 27 H (7-17) mg/dL Creatinine 7.3 H (0.7-1.2) mg/dL Calcium 10.6 H (8.4-10.2) mg/dL Troponin T 0.042 H (0.00-0.029) ng/mL - Imaging and Cardiology EKG: image reviewed Chest x-ray: report reviewed Assessment and Plan Assessment Shortness of breath ESRD on dialysis Hypertension uncontrolled GERD Plan Admit to medicine Consult renal for dialysis Check cardiac enzymes, d-dimer, echo IV hydralazine for blood pressure control DVT prophalaxis Addendum d-dimer elevated, check v/q
[2019-03-19 01:02] LABS: Creatine Kinase MB < 1.0 ng/mL (0.0-4.0)
[2019-03-19 02:03] LABS: Chol/HDL Ratio 2.26 %
[2019-03-19] MEDS ORDERED: CATAPRES PO PRN (04:35)
[2019-03-19] MEDS ORDERED: APRESOLINE IV PRN (04:49)
[2019-03-19 05:59] LABS: Basophils # (Auto) 0.1 K/mm3 (0.0-0.1); Basophils % (Auto) 1.3 % (0.0-1.8); Eosinophils # (Auto) 0.1 K/mm3 (0.0-0.4); Eosinophils % (Auto) 0.8 % (0.0-4.3); Hematocrit 30.4 % (30.3-42.9); Hemoglobin 10.2 gm/dl (10.1-14.3); Lymphocytes % (Auto) 19.5 % (13.4-35.0); Mean Corpuscular HGB Conc 34 % (30-34); Mean Corpuscular Volume 89 fl (79-97); Monocytes # (Auto) 1.2 K/mm3 (0.0-0.8); Monocytes % (Auto) 11.1 % (0.0-7.3); Platelet Count 239 K/mm3 (140-440); Red Blood Count 3.44 M/mm3 (3.65-5.03)
[2019-03-19 06:04] LABS: Red Cell Distribution Width 22.4 % (13.2-15.2)
[2019-03-19 06:27] LABS: Calcium 10.4 mg/dL (8.4-10.2)
--- NOTE | 2019-03-19 06:59 | Consultation ---
History of Present Illness - Reason for Consult Consult date: 03/19/19 end stage renal disease, accelerated hypertension Requesting physician: EDUARDO ROBISON - History of Present Illness This is a 58yo AAF with a history of hypertension, end-stage renal disease on HD on MWF, heart failure, GERD who presents to [facility] ER with complaints of shortness of breath that started the night prior to admission. pt also reports nausea and vomiting along with 1 episode of diarrhea 2 nights ago after eating a chili dog. She took some Imodium, diarrhea with vomiting is now resolved. in ER pt was hypoxic with O2 sat at 86% improved with 2L NC. CXR showed e/o cardiomegaly however no acute pulmonary edema. BP was elevated at 201/107mmHg and pt was admitted for hypertensive urgency. Pt denies fever, chills, CP, palpitations, abd pain, dysuria. denies recent travel, reports compliance with her HD treatments, however could not tolerate her BP meds the day prior to admission. Past History Past Medical History: anemia, ESRD, hypertension, renal failure Past Surgical History: Other (AVF) Social history: denies: smoking, alcohol abuse, prescription drug abuse, IV drug use Family history: hypertension Medications and Allergies Allergies Allergy/AdvReac Type Severity Reaction Status Date / Time acetaminophen [From [place]] AdvReac Vomiting Verified 03/18/19 21:35 clonidine AdvReac Unknown Verified 03/18/19 21:35 hydrocodone [From [place]] AdvReac Vomiting Verified 03/18/19 21:35 lisinopril AdvReac Unknown Verified 03/18/19 21:35 Home Medications Medication Instructions Recorded Confirmed Last Taken Type NIFEdipine [Nifedipine ER] 60 mg PO BID 07/23/17 03/18/19 1 Day Ago History ~07/22/17 Sevelamer Carbonate [Renvela] 2,400 mg PO AC 07/24/17 03/18/19 07/24/17 History 2400 Carvedilol [Coreg] 25 mg PO BID #60 tablet 03/29/18 03/18/19 Unknown Rx Doxazosin [Cardura] 4 mg PO QDAY #30 tablet 03/29/18 03/18/19 Unknown Rx hydrALAZINE [Apresoline TAB] 100 mg PO TID #30 tab 03/29/18 03/18/19 Unknown Rx Active Meds: Active Medications Carvedilol (Coreg) 25 mg PO BID NAHUN Doxazosin Mesylate (Cardura) 4 mg PO QDAY NAHUN Enoxaparin Sodium (Lovenox) 30 mg SUB-Q QDAY NAHUN Hydralazine HCl (Apresoline) 100 mg PO TID NAHUN Hydralazine HCl (Apresoline) 10 mg IV Q4H PRN PRN Reason: SBP>160 Last Admin: 03/19/19 04:55 Dose: 10 mg Documented by: Nifedipine (Procardia Xl) 60 mg PO BID@0800,1700 NAHUN Ondansetron HCl (Zofran) 4 mg IV Q8H PRN PRN Reason: Nausea And Vomiting Sevelamer Carbonate (Renvela) 2,400 mg PO AC NAHUN Sodium Chloride (Sodium Chloride Flush Syringe 10 Ml) 10 ml IV BID NAHUN Sodium Chloride (Sodium Chloride Flush Syringe 10 Ml) 10 ml IV PRN PRN PRN Reason: LINE FLUSH Review of Systems All systems: negative Constitutional: weakness, malaise Cardiovascular: shortness of breath Exam - Vital Signs Vital signs: Vital Signs Temp Pulse Resp BP Pulse Ox 98.9 F 101 H 18 194/108 94 03/18/19 21:37 03/18/19 21:37 03/18/19 21:37 03/18/19 21:37 03/18/19 21:37 - General Appearance General appearance: well-developed, well-nourished, appears stated age EENT: ATNC, PERRL, mucous membranes moist Neck: Present: neck supple Respiratory: Clear to Ascultation Heart: regular, S1S2 Gastrointestinal: Present: normoactive bowel sounds Integumentary: no rash, other (no edema ) Neurologic: no focal deficit, alert and oriented x3, strength 5/5, CN 3-12 intact Psychiatric: mood/affect appropriate, cooperative Results - Lab Results 03/19/19 05:11 03/19/19 05:11 Most recent lab results Calcium 10.4 mg/dL (8.4-10.2) H 03/19/19 05:11 Assessment and Plan - Patient Problems (1) Hypertensive urgency Current Visit: Yes Status: Acute Plan to address problem: Bp improved on IV hydralazine/IV labetalol, target BP < 160/90 mmHg. Resume home BP meds. Will resume HD on MWF schedule with target UF 2-3L as tolerated for further volume/BP control. (2) End-stage renal disease needing dialysis Current Visit: Yes Status: Acute Plan to address problem: cont HD on MWF schedule (3) Shortness of breath Current Visit: Yes Status: Acute Plan to address problem: elevated d-dimer noted > 2000, VQ scan pending to rule out PE (4) Anemia in ESRD (end-stage renal disease) Current Visit: No Status: Chronic Plan to address problem: Hb at target, will resume EPO with HD
[2019-03-19 07:30] LABS: Creatine Kinase MB < 1.0 ng/mL (0.0-4.0)
[2019-03-19] MEDS: COREG PO SCH ×2 (09:25→21:15)
[2019-03-19] MEDS: RENVELA PO SCH ×3 (09:25→16:27)
[2019-03-19] MEDS: PROCARDIA XL PO SCH ×2 (09:25→16:27)
[2019-03-19] MEDS: APRESOLINE PO SCH ×3 (09:26→21:12)
[2019-03-19] MEDS: LOVENOX SUB-Q SCH (09:27)
[2019-03-19] MEDS ORDERED: CARDURA PO SCH ×2 (10:00→21:00)
--- NOTE | 2019-03-19 10:41 | Progress Note ---
Assessment and Plan Assessment and plan: Accelerated hypertension. Patient's blood pressure medication improved with IV hydralazine and labetalol. Resume home blood pressure medications. Follow-up echocardiogram. ESRD. Continue hemodialysis per nephrology. Elevated d-dimer. Follow-up VQ scan. Acute hypoxic respiratory failure. Resolved. Etiology likely secondary to volume overload. Patient status post hemodialysis. Follow-up VQ scan. O2 for supportive care. Anemia of ESRD. Resume Epogen with hemodialysis. Disposition. Anticipate discharge in a.m. History Interval history: This is a 58yo AAF with a history of hypertension, end-stage renal disease on HD on MWF, heart failure, GERD who presents to [facility] ER with complaints of shortness of breath that started the night prior to admission. pt also reports nausea and vomiting along with 1 episode of diarrhea 2 nights ago after eating a chili dog. She took some Imodium, diarrhea with vomiting is now resolved. in ER pt was hypoxic with O2 sat at 86% improved with 2L NC. CXR showed e/o cardiomegaly however no acute pulmonary edema. BP was elevated at 201/107mmHg and pt was admitted for hypertensive urgency. Pt denies fever, chills, CP, palpitations, abd pain, dysuria. denies recent travel, reports compliance with her HD treat ments, however could not tolerate her BP meds the day prior to admission. Hospitalist Physical - Constitutional Vitals: Temp Pulse Resp BP Pulse Ox 99.5 F 91 H 18 167/90 95 03/19/19 07:50 03/19/19 09:26 03/19/19 07:50 03/19/19 09:26 03/19/19 09:08 General appearance: Present: no acute distress, well-nourished - EENT Eyes: Present: PERRL, EOM intact ENT: hearing intact, clear oral mucosa, dentition normal - Neck Neck: Present: supple, normal ROM - Respiratory Respiratory effort: normal Respiratory: bilateral: CTA - Cardiovascular Rhythm: regular Heart Sounds: Present: S1 & S2. Absent: gallop, rub - Extremities Extremities: no ischemia, No edema, Full ROM - Abdominal General gastrointestinal: soft, non-tender, non-distended, normal bowel sounds - Integumentary Integumentary: Present: clear, warm, dry - Neurologic Neurologic: CNII-XII intact, moves all extremities Results - Labs CBC & Chem 7: 03/19/19 05:11 03/19/19 05:11 Labs: Laboratory Last Values WBC 10.4 K/mm3 (4.5-11.0) 03/19/19 05:11 RBC 3.44 M/mm3 (3.65-5.03) L 03/19/19 05:11 Hgb 10.2 gm/dl (10.1-14.3) 03/19/19 05:11 Hct 30.4 % (30.3-42.9) 03/19/19 05:11 MCV 89 fl (79-97) 03/19/19 05:11 MCH 30 pg (28-32) 03/19/19 05:11 MCHC 34 % (30-34) 03/19/19 05:11 RDW 22.4 % (13.2-15.2) H 03/19/19 05:11 Plt Count 239 K/mm3 (140-440) 03/19/19 05:11 Lymph % (Auto) 19.5 % (13.4-35.0) 03/19/19 05:11 [place] % (Auto) 11.1 % (0.0-7.3) H 03/19/19 05:11 Eos % (Auto) 0.8 % (0.0-4.3) 03/19/19 05:11 Baso % (Auto) 1.3 % (0.0-1.8) 03/19/19 05:11 Lymph # 2.0 K/mm3 (1.2-5.4) 03/19/19 05:11 [place] # 1.2 K/mm3 (0.0-0.8) H 03/19/19 05:11 Eos # 0.1 K/mm3 (0.0-0.4) 03/19/19 05:11 Baso # 0.1 K/mm3 (0.0-0.1) 03/19/19 05:11 Seg Neutrophils % 67.3 % (40.0-70.0) 03/19/19 05:11 Seg Neutrophils # 7.0 K/mm3 (1.8-7.7) 03/19/19 05:11 2169.19 ng/mlDDU (0-234) H 03/19/19 00:00 Sodium 141 mmol/L (137-145) 03/19/19 05:11 Potassium 4.5 mmol/L (3.6-5.0) 03/19/19 05:11 Chloride 99.3 mmol/L (98-107) 03/19/19 05:11 Carbon Dioxide 26 mmol/L (22-30) 03/19/19 05:11 20 mmol/L 03/19/19 05:11 BUN 30 mg/dL (7-17) H 03/19/19 05:11 8.4 mg/dL (0.7-1.2) H 03/19/19 05:11 Estimated GFR 6 ml/min 03/19/19 05:11 4 % 03/19/19 05:11 Glucose 89 mg/dL (65-100) 03/19/19 05:11 Calcium 10.4 mg/dL (8.4-10.2) H 03/19/19 05:11 0.90 mg/dL (0.1-1.2) 03/18/19 22:15 AST 23 units/L (5-40) 03/18/19 22:15 ALT 13 units/L (7-56) 03/18/19 22:15 64 units/L (35-129) 03/18/19 22:15 31 units/L (30-135) 03/19/19 05:11 CK-MB (CK-2) < 1.0 ng/mL (0.0-4.0) 03/19/19 05:11 CK-MB (CK-2) Rel Index 3.2 (0-4) 03/19/19 05:11 0.033 ng/mL (0.00-0.029) H 03/19/19 05:11 7.4 g/dL (6.3-8.2) 03/18/19 22:15 4.3 g/dL (3.9-5) 03/18/19 22:15 1.4 % 03/18/19 22:15 Triglycerides 96 mg/dL (2-149) 03/18/19 22:15 Cholesterol 120 mg/dL (50-199) 03/18/19 22:15 49 mg/dL (50-130) L 03/18/19 22:15 53 mg/dL (40-59) 03/18/19 22:15 2.26 % 03/18/19 22:15 Active Medications - Current Medications Current Medications: Generic Name Dose Route Start Last Admin Trade Name Freq PRN Reason Stop Dose Admin Carvedilol 25 mg 03/19/19 10:00 03/19/19 09:25 Coreg PO 25 mg BID NAHUN Administration Doxazosin Mesylate 4 mg 03/19/19 10:00 03/19/19 09:26 Cardura PO Not Given QDAY NAHUN Enoxaparin Sodium 30 mg 03/19/19 10:00 03/19/19 09:27 Lovenox SUB-Q 30 mg QDAY NAHUN Administration Hydralazine HCl 100 mg 03/19/19 08:00 03/19/19 09:26 Apresoline PO 100 mg TID NAHUN Administration Hydralazine HCl 10 mg 03/19/19 04:49 03/19/19 04:55 Apresoline IV 10 mg Q4H PRN Administration SBP>160 Nifedipine 60 mg 03/19/19 08:00 03/19/19 09:25 Procardia Xl PO 60 mg BID@0800,1700 NAHUN Administration Ondansetron HCl 4 mg 03/18/19 23:56 Zofran IV Q8H PRN Nausea And Vomiting Sevelamer Carbonate 2,400 mg 03/19/19 07:30 03/19/19 09:25 Renvela PO 2,400 mg AC NAHUN Administration Sodium Chloride 10 ml 03/19/19 10:00 Sodium Chloride Flush Syringe 10 Ml IV BID NAHUN Sodium Chloride 10 ml 03/18/19 23:56 Sodium Chloride Flush Syringe 10 Ml IV PRN PRN LINE FLUSH
[2019-03-19] MEDS: SODIUM CHLORIDE FLUSH SYRINGE 10 ML IV SCH ×2 (10:47→21:16)
[2019-03-19] MEDS ORDERED: TYLENOL PO PRN (10:59)
[2019-03-19 13:47] LABS: Hepatitis C Virus Antibody Non-Reactive (NonReactive)
[2019-03-19 14:17] LABS: Hepatitis B Surface Antigen Non-Reactive (Negative)
[2019-03-19] MEDS ORDERED: ATIVAN PO ONE (22:00)
--- NOTE | 2019-03-20 07:29 | Discharge Summary ---
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 In ER, pt was hypoxic with O2 sat at 86% improved with 2L NC. CXR showed e/o cardiomegaly however no acute pulmonary edema. BP was elevated at 201/107mmHg and pt was admitted for hypertensive urgency. Pt denies fever, chills, CP, palpitations, abd pain, dysuria. denies recent travel, reports compliance with her HD treatments, however could not tolerate her BP meds the day prior to admission. The patient was admitted with diagnosis of acute hypoxic respiratory failure and accelerated hypertension. The patient received hemodialysis and had no further hypoxia. Patient was restarted back on her home medications and blood pressure stabilized. Patient is felt to have received maximal hospital benefit and will be discharged home. Dedicated discharge time 32 minutes. Disposition: [id number] [facility] Time spent for discharge: 32 - Discharge Diagnoses (1) End-stage renal disease needing dialysis Status: Acute (2) Hypertensive urgency Status: Acute (3) Acute respiratory failure with hypoxia Status: Acute Core Measure Documentation - Palliative Care Palliative Care/ Comfort Measures: Not Applicable - Core Measures Any of the following diagnoses?: none Exam - Constitutional Vitals: Temp Pulse Resp BP Pulse Ox 98.1 F 90 16 147/79 93 03/20/19 04:03 03/20/19 05:00 03/20/19 04:03 03/20/19 04:03 03/20/19 04:03 General appearance: Present: no acute distress, well-nourished - EENT Eyes: Present: PERRL ENT: hearing intact, clear oral mucosa - Neck Neck: Present: supple, normal ROM - Respiratory Respiratory effort: normal Respiratory: bilateral: CTA - Cardiovascular Heart Sounds: Present: S1 & S2. Absent: rub, click - Extremities Extremities: pulses symmetrical, No edema Peripheral Pulses: within normal limits - Abdominal General gastrointestinal: Present: soft, non-tender, non-distended, normal bowel sounds Female genitourinary: Present: normal - Integumentary Integumentary: Present: clear, warm, dry - Musculoskeletal Musculoskeletal: gait normal, strength equal bilaterally - Psychiatric Psychiatric: appropriate mood/affect, intact judgment & insight - Neurologic Neurologic: CNII-XII intact, moves all extremities Plan Activity: advance as tolerated Weight Bearing Status: Weight Bear as Tolerated Diet: renal Follow up with: PRIMARY CAREMD [Primary Care Provider] - 3-5 Days ELBERT GARCIA MD [Staff Physician] - 7 Days Prescriptions: hydrALAZINE [Apresoline TAB] 100 mg PO TID #30 tab Doxazosin [Cardura] 4 mg PO QDAY #30 tablet Carvedilol [Coreg] 25 mg PO BID #60 tablet NIFEdipine [Nifedipine ER] 60 mg PO BID #60 tab.er.24
--- NOTE | 2019-03-20 08:01 | XRay Report ---
AP CHEST: HISTORY: chest pain There is moderate to severe cardiomegaly. A pericardial effusion could be present. The lungs are generally clear although there is moderate central pulmonary venous congestion. No consolidation, large pleural effusion or pneumothorax is identified. The bony structures are grossly intact. No significant change since 03/18/19. IMPRESSION: Cardiomegaly and pulmonary venous congestion. No overwhelming change since the exam 2 days ago.
--- NOTE | 2019-03-20 08:48 | Nuclear Medicine Report ---
LUNG SCAN, VENTILATION AND PERFUSION: History: Evaluate for PE, shortness of breath. Technique: 5mci of Tc99m MAA was infused for the perfusion images. 15mci XE 133 gas was inhaled for the ventilatory images. Correlation is made with a chest x-ray dated 03/20/19. Findings: Inhalation of Xenon gas demonstrates a normal distribution of the activity throughout both lungs. The wash out phases show mild retention of the radiotracer bilaterally consistent with obstructive pulmonary disease. After injection of Technetium 99m macroaggregated albumin gamma camera imaging of the lungs in multiple projections demonstrates normal pulmonary contours with a homogeneous distribution of activity. No focal areas of perfusion deficiency are identified. Prominent cardiac shadow is noted. IMPRESSION: Low probability for pulmonary embolus.
[2019-03-20] MEDS ORDERED: MIRALAX 3350 PO SCH (10:00)
[2019-03-20] MEDS ORDERED: NACL 0.9% 100 ML IV PRN (10:09)
--- NOTE | 2019-03-20 10:42 | Progress Note ---
Assessment and Plan - Patient Problems (1) Hypertensive urgency Current Visit: Yes Status: Acute Plan to address problem: Bp improved on IV hydralazine/IV labetalol, target BP < 160/90 mmHg. Resume home BP meds. Cont MWF schedule with target UF 2-3L as tolerated for further volume/BP control. (2) End-stage renal disease needing dialysis Current Visit: Yes Status: Acute Plan to address problem: cont HD on MWF schedule. pt stable for discharge from renal stand point after HD (3) Shortness of breath Current Visit: Yes Status: Acute Plan to address problem: elevated d-dimer noted > 2000, VQ scan showed low probability for PE (4) Anemia in ESRD (end-stage renal disease) Current Visit: No Status: Chronic Plan to address problem: Hb at target, will resume EPO with HD Subjective Date of service: 03/20/19 Principal diagnosis: ESRD Interval history: pt awake, alert, in no acute respiratory distress Objective - Vital Signs Vital signs: Vital Signs - 12hr 03/19/19 03/20/19 03/20/19 23:30 04:03 05:00 Temperature 98.7 F 98.1 F Pulse Rate 91 H 92 H 90 Respiratory 16 16 Rate Blood Pressure 151/84 147/79 O2 Sat by Pulse 91 93 Oximetry 03/20/19 09:12 Temperature 98.5 F Pulse Rate Respiratory 18 Rate Blood Pressure 169/96 O2 Sat by Pulse Oximetry - General Appearance General appearance: well-developed, well-nourished, appears stated age EENT: ATNC, PERRL, mucous membranes moist Neck: no JVD Respiratory: Present: Clear to Ascultation Cardiology: regular, S1S2 Gastrointestinal: normoactive bowel sounds Integumentary: no rash, other (no edema ) Neurologic: no focal deficit, alert and oriented x3, strength 5/5, CN 3-12 i ntact Psychiatric: mood/affect appropriate, cooperative - Lab 03/19/19 05:11 03/19/19 05:11 Most recent lab results Calcium 10.4 mg/dL (8.4-10.2) H 03/19/19 05:11 Medications & Allergies - Medications Allergies/Adverse Reactions: Allergies acetaminophen [From [place]] Adverse Reaction (Verified 03/18/19 21:35) Vomiting clonidine Adverse Reaction (Verified 03/18/19 21:35) Unknown Cough hydrocodone [From [place]] Adverse Reaction (Verified 03/18/19 21:35) Vomiting lisinopril Adverse Reaction (Verified 03/18/19 21:35) Unknown cough Home Medications: Home Medications Medication Instructions Recorded Confirmed Last Taken Type Sevelamer Carbonate [Renvela] 2,400 mg PO AC 07/24/17 03/18/19 07/24/17 History 2400 Carvedilol [Coreg] 25 mg PO BID #60 tablet 03/20/19 Unknown Rx Doxazosin [Cardura] 4 mg PO QDAY #30 tablet 03/20/19 Unknown Rx NIFEdipine [Nifedipine ER] 60 mg PO BID #60 tab.er.24 03/20/19 Unknown Rx hydrALAZINE [Apresoline TAB] 100 mg PO TID #30 tab 03/20/19 Unknown Rx Active Medications: Generic Name Dose Route Start Last Admin Trade Name Freq PRN Reason Stop Dose Admin Acetaminophen 650 mg 03/19/19 10:59 03/19/19 23:42 Tylenol PO 650 mg Q6H PRN Administration Pain, Mild (1-3) Carvedilol 25 mg 03/19/19 10:00 03/19/19 21:15 Coreg PO 25 mg BID NAHUN Administration Doxazosin Mesylate 4 mg 03/19/19 21:00 03/19/19 21:15 Cardura PO 4 mg DAILY@2100 NAHUN Administration Enoxaparin Sodium 30 mg 03/19/19 10:00 03/19/19 09:27 Lovenox SUB-Q 30 mg QDAY NAHUN Administration Hydralazine HCl 100 mg 03/19/19 08:00 03/19/19 21:12 Apresoline PO 100 mg TID NAHUN Administration Hydralazine HCl 10 mg 03/19/19 04:49 03/19/19 04:55 Apresoline IV 10 mg Q4H PRN Administration SBP>160 Sodium Chloride 100 mls @ 999 mls/hr 03/20/19 10:09 Nacl 0.9% IV JIM PRN Hypotension Nifedipine 60 mg 03/19/19 08:00 03/19/19 16:27 Procardia Xl PO 60 mg BID@0800,1700 NAHUN Administration Ondansetron HCl 4 mg 03/18/19 23:56 Zofran IV Q8H PRN Nausea And Vomiting Polyethylene Glycol 17 gm 03/20/19 10:00 Miralax 3350 PO QDAY NAHUN Sevelamer Carbonate 2,400 mg 03/19/19 07:30 03/19/19 16:27 Renvela PO 2,400 mg AC NAHUN Administration Sodium Chloride 10 ml 03/19/19 10:00 03/19/19 21:16 Sodium Chloride Flush Syringe 10 Ml IV 10 ml BID NAHUN Administration Sodium Chloride 10 ml 03/18/19 23:56 Sodium Chloride Flush Syringe 10 Ml IV PRN PRN LINE FLUSH
[2019-03-20] MEDS: RENVELA PO SCH ×2 (12:13→12:23)
[2019-03-20] MEDS: APRESOLINE PO SCH ×2 (12:21→14:55)
[2019-03-20] MEDS: PROCARDIA XL PO SCH (12:21)
[2019-03-20] MEDS: LOVENOX SUB-Q SCH (12:22)
[2019-03-20] MEDS: COREG PO SCH (12:22)
[2019-03-20] MEDS: SODIUM CHLORIDE FLUSH SYRINGE 10 ML IV SCH (12:23)
[2019-03-20] MEDS ORDERED: NACL 0.9 (PRIMING MACHINE ONLY DIALYSIS) MC ONE (12:53)
[2019-03-20 15:24] VITALS: BP 165/92
== END 2019-03-20 16:30 | disposition home or self-care (01) | DRG 189 ==
LOC: ED 21:31 → 4A 23:56
PROVIDERS: ADMIT Internal Medicine; ATTEND Hospitalist
PROC: 5A1D70Z Performance of Urinary Filtration, Intermittent, Less than 6 Hours Per Day (ICD-10-PCS; principal; 2019-03-20)
DX: J96.01 Acute respiratory failure with hypoxia (principal); N18.6 End stage renal disease; I13.2 Hypertensive heart and chronic kidney disease with heart failure and with stage 5 chronic kidney disease, or end stage renal disease; I16.0 Hypertensive urgency; D63.1 Anemia in chronic kidney disease; F17.200 Nicotine dependence, unspecified, uncomplicated; I50.9 Heart failure, unspecified; K21.9 Gastro-esophageal reflux disease without esophagitis; Z82.49 Family history of ischemic heart disease and other diseases of the circulatory system; Z79.899 Other long term (current) drug therapy; Z99.2 Dependence on renal dialysis
CPT/HCPCS: 36415; 71045; 78582; 80048; 80053; 80061; 80074; 82550; 82553; 84484; 85025; 85379; 93005; 93010; 93306; G0378; A9540; A9558; J0360; J1650; J2060; J7030

== ENCOUNTER 2021-12-18 08:33 | Emergency (ER) | payer MEDICARE ==
--- NOTE | 2021-12-18 09:27 | Event Note ---
ED Screening Note ED Screening Note: ate D's last night then had n/v and some diarrhea gen abd pain kidney transplant - can not keep immune supression down states she feels lethargic and sleepy no cp no sob no fever no chills psh k transplant LA fistula removed neprhology- [place] PCP med sough no c/e/drugs mom dec cva dad dec lung ca home rx prednisone celtik- immune suppression nifedepine hydral coreg This initial assessment/diagnostic orders/clinical plan/treatment(s) is/are subject to change based on patients health status, clinical progression and re- assessment by fellow clinical providers in the ED. Further treatment and workup at subsequent clinical providers discretion. Patient/guardian urged not to elope from the ED as their condition may be serious if not clinically assessed and managed. Initial orders include: labs
[2021-12-18] MEDS ORDERED: SODIUM CHLORIDE 0.9% 1000 ML 1,000 ML IV ONE (09:33)
[2021-12-18] MEDS ORDERED: ONDANSETRON 4 MG/2 ML INJ IV ONE (09:33)
[2021-12-18 09:37] LABS: Basophils # (Auto) 0.1 K/mm3 (0.0-0.1); Basophils % (Auto) 0.4 % (0.0-1.8); Eosinophils % (Auto) 0.1 % (0.0-4.3); Hematocrit 44.1 % (30.3-42.9); Lymphocytes # (Auto) 1.2 K/mm3 (1.2-5.4); Lymphocytes % (Auto) 9.9 % (13.4-35.0); Mean Corpuscular HGB Conc 32 % (30-34); Mean Corpuscular Volume 86 fl (79-97); Monocytes # (Auto) 1.1 K/mm3 (0.0-0.8); Monocytes % (Auto) 8.9 % (0.0-7.3); Platelet Count 360 K/mm3 (140-440); Red Blood Count 5.15 M/mm3 (3.65-5.03); Red Cell Distribution Width 13.5 % (13.2-15.2)
--- NOTE | 2021-12-18 09:50 | Emergency Department Report ---
ED N/V/D HPI - General Chief complaint: Nausea/Vomiting/Diarrhea Stated complaint: FOOD POSION Time Seen by Provider: 12/18/21 09:23 Source: patient Mode of arrival: Ambulatory Limitations: No Limitations - History of Present Illness Initial comments: Patient is 61 years old female with history of end-stage renal disease status post kidney transplant in 2019. Patient stated that she did not have any issues since then. Patient stated that she is compliant with her immunosuppressive medication. Patient stated that her creatinine baseline now is less than 1. Patient presented to the ER complaining of nausea, vomiting, diarrhea and abdominal pain since yesterday. Patient stated that her symptoms started after she ate at [employer]. Patient denied any fever or chills. No chest pain or shortness of breath. Patient stated that prior to the symptoms she was doing well. MD complaint: nausea, vomiting, diarrhea, abdominal pain -: Last night Description of Vomiting: food contents Description of Diarrhea: water Location: diffuse Radiation: none Severity: moderate Quality: cramping Consistency: intermittent Context: possible food poisoning Associated Symptoms: denies other symptoms - Related Data Previous Rx's Medication Instructions Recorded Last Taken Type NIFEdipine [Nifedipine ER] 60 mg PO BID #60 tab.er.24 03/20/19 Unknown Rx carvediloL [Coreg] 25 mg PO BID #60 tablet 03/20/19 Unknown Rx hydrALAZINE [Apresoline TAB] 100 mg PO TID #30 tab 03/20/19 Unknown Rx Allergies Allergy/AdvReac Type Severity Reaction Status Date / Time tramadol Allergy Itching Verified 12/18/21 08:42 acetaminophen [From [facility]] AdvReac Vomiting Verified 12/18/21 08:42 clonidine AdvReac Unknown Verified 12/18/21 08:42 hydrocodone [From [facility]] AdvReac Vomiting Verified 12/18/21 08:42 lisinopril AdvReac Unknown Verified 12/18/21 08:42 ED Review of Systems ROS: Stated complaint: FOOD POSION Other details as noted in HPI Comment: All other systems reviewed and negative Constitutional: denies: chills, fever Respiratory: denies: cough, shortness of breath, SOB with exertion, SOB at rest Cardiovascular: denies: chest pain, palpitations Gastrointestinal: abdominal pain, nausea, vomiting, diarrhea. 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 NO DIALYSIS DUE TO KIDNEY TRANSPLANT - Surgical History Hx Coronary Stent: No Hx Pacemaker: No Hx Internal Defibrillator: No Additional Surgical History: LUE fistula KID [facility] TRANPLANT - Social History Smoking Status: Never Smoker - Medications Home Medications: Home Medications Medication Instructions Recorded Confirmed Last Taken Type NIFEdipine [Nifedipine ER] 60 mg PO BID #60 tab.er.24 03/20/19 Unknown Rx carvediloL [Coreg] 25 mg PO BID #60 tablet 03/20/19 Unknown Rx hydrALAZINE [Apresoline TAB] 100 mg PO TID #30 tab 03/20/19 Unknown Rx ED Physical Exam - General Limitations: No Limitations General appearance: alert, in no apparent distress - Head Head exam: Present: atraumatic, normocephalic, normal inspection - Eye Eye exam: Present: normal appearance - ENT ENT exam: Present: mucous membranes dry - Neck Neck exam: Present: normal inspection, full ROM. Absent: tenderness, meningismus - Respiratory Respiratory exam: Present: normal lung sounds bilaterally - Cardiovascular Cardiovascular Exam: Present: regular rate, normal rhythm, normal heart sounds - GI/Abdominal GI/Abdominal exam: Present: soft, normal bowel sounds. Absent: distended, tenderness, guarding, rebound, rigid, organomegaly, mass, bruit, pulsatile mass, hernia - Extremities Exam Extremities exam: Present: normal inspection, full ROM, normal capillary refill. Absent: tenderness, pedal edema, joint swelling, calf tenderness - Back Exam Back exam: Present: normal inspection, full ROM. Absent: CVA tenderness (R), CVA tenderness (L) - Neurological Exam Neurological exam: Present: alert, oriented X3, CN II-XII intact, normal gait, reflexes normal. Absent: motor sensory deficit - Psychiatric Psychiatric exam: Present: normal mood - Skin Skin exam: Present: warm, intact, normal color ED Course Vital Signs 12/18/21 12/18/21 12/18/21 08:45 10:38 10:40 Temperature 98.2 F Pulse Rate 96 H 81 Respiratory 0 L 19 Rate Blood Pressure 155/90 Blood Pressure 118/71 [Right] O2 Sat by Pulse 100 98 98 Oximetry ED Medical Decision Making - Lab Data Result diagrams: 12/18/21 09:25 12/18/21 09:25 - Medical Decision Making Patient is 61 years old female with history of end-stage renal disease status post kidney transplant in 2019. Patient stated that she did not have any issues since then. Patient stated that she is compliant with her immunosuppressive medication. Patient stated that her creatinine baseline now is less than 1. Patient presented to the ER complaining of nausea, vomiting, diarrhea and abdominal pain since yesterday. Patient stated that her symptoms started after she ate at [employer]. Patient denied any fever or chills. No chest pain or shortness of breath. Patient stated that prior to the symptoms she was doing well. Patient received normal saline, Zofran. Patient stated that she is feeling much better. Labs reviewed and showed a creatinine of 1.4 and a BUN of 8. Labs also showed significantly elevated liver enzymes. Patient stated that she does not know if it's been elevated before not but she had history of liver issue because she took some antibiotic in the past and she doesn't know if that was resolved or not. Again also her immunosuppression the medicine can cause that to. On exam patient does not have any right upper quadrant tenderness, abdomen is soft. No fever or chills. Patient stated that she would be able to follow- up with her kidney transplant in the morning. I strongly advised her to see her transplant doctor tomorrow and to return to the ER if she develop any new symptoms. Critical care attestation.: If time is entered above; I have spent that time in minutes in the direct care of this critically ill patient, excluding procedure time. ED Disposition Clinical Impression: Acute nausea with nonbilious vomiting, Kidney transplant recipient, Elevated liver enzymes Disposition: 01 HOME / SELF CARE / HOMELESS Is pt being admited?: No Condition: Stable Instructions: Nausea and Vomiting, Adult, [id number] Additional Instructions: Please follow-up with your kidney transplant physician tomorrow. Your liver enzymes today is high. Your AST is 507, ALT is 432, alkaline phosphatase is 182 and total bilirubin is 2.1.
[2021-12-18 10:00] LABS: Alanine Aminotransferase 432 units/L (7-56); Albumin 4.6 g/dL (3.9-5); Blood Urea Nitrogen 8 mg/dL (7-17); Calcium 10.4 mg/dL (8.4-10.2); Hemolysis Index 62
[2021-12-18 10:11] LABS: BUN/Creatinine Ratio 20
[2021-12-18 10:25] LABS: Mucus,Urine FEW /HPF
[2021-12-18 10:34] LABS: Bilirubin,Urine Negative (Negative); Blood,Urine Negative (Negative); Color,Urine Yellow (Yellow)
[2021-12-18 11:52] VITALS: BP 122/71
== END 2021-12-18 11:51 | disposition home or self-care (01) ==
LOC: ED 08:33
DX: R10.9 Unspecified abdominal pain (principal); R11.2 Nausea with vomiting, unspecified; R74.01 Elevation of levels of liver transaminase levels
CPT/HCPCS: 36415; 80053; 81001; 83690; 83735; 83880; 84100; 84484; 85025; 96361; 96374; 99283; J2405; J7030; Q0162

== ENCOUNTER 2022-03-26 11:54 | Emergency (ER) | payer MEDICARE ==
[2022-03-26 12:13] VITALS: BP 172/78
== END 2022-03-26 14:00 | disposition left against medical advice (07) ==
LOC: ED 11:54
DX: R10.9 Unspecified abdominal pain (principal); Z53.21 Procedure and treatment not carried out due to patient leaving prior to being seen by health care provider